=== PATIENT | female | born 1985 ===

== ENCOUNTER 2018-10-17 18:43 | Emergency (ER) | payer BC, SELFPAY ==
[2018-10-17 18:54] VITALS: BP 111/90; PULSE 70; RESP 18; TEMP 36.9; O2SAT 100; BMI 27.8
--- NOTE | 2018-10-17 19:11 | ED_ITS ---
HPI - Head Injury <MATEO GoreP - Last Filed: 10/17/18 22:02> General Chief complaint: Head Injury Stated complaint: Hit in head with a rock Time Seen by Provider: 10/17/18 18:48 Source: patient and family Mode of arrival: ambulatory Limitations: no limitations History of Present Illness HPI Narrative: This is a 33-year-old female, nonsmoker, who presents with spouse with head injury and laceration to left-sided forehead. She reports that gotten a hit by a small office size rock that was thrown by 6-year-old child accidentally. The child was throwing a rock above his head and landed on her forehead. Patient denies mid cervical tenderness, loss of consciousness, weakness to extremities, nausea or vomiting. The wound was covered with bulky pressure dressing and a clot prior coming in to ED. Patient denies on anticoagulant currently. The patient states she delivered her 3rd child 5 years ago and remembering getting a vaccination her arm which gave her pain for couple of days. The patient and spouse are visitor from [facility] to [place]. Related Data Allergies Allergy/AdvReac Type Severity Reaction Status Date / Time No Known Drug Allergies Allergy Verified 10/17/18 18:58 Review of Systems <MATEO GoreP - Last Filed: 10/17/18 22:02> Review of Systems General: Denies fever, chills, fatigue, malaise, sweats. HEENT: Forehead pain with laceration. Denies sinus pain, ear pain, sore throat, difficulty swallowing, dizziness. Respiratory: Denies dyspnea, cough, wheezing, hemoptysis, sputum. Cardiovascular: Denies chest pain, palpitations, orthopnea, edema. Gastrointestinal: Denies nausea, vomiting, abdominal pain, diarrhea, constipation, melena. : Denies dysuria, frequency, incontinence, hematuria, urinary retention. Musculoskeletal: Denies weakness, joint pain or bony pain. Skin: Denies rash, skin lesions, or other. Neurologic: Denies weakness, headache, numbness, change in speech, confusion, seizures, incoordination. Psychiatric: No concerning psychosocial issues. 12-point review of systems is negative except for those stated above. PFSH <MATEO GoreP - Last Filed: 10/17/18 22:02> Medical History (Updated 10/17/18 @ 21:52 by KAYLEE Gore) No significant past medical history (Acute) No significant past surgical history (Acute) Social History Smoking Status: Never smoker Social History Smoking Status: Never smoker Exam <KAYLEE Gore - Last Filed: 10/17/18 22:02> Narrative Exam Narrative: General appearance: well developed, well nourished, in no acute distress. Head: normocephalic, atraumatic, no scalp lesions, non-tender. Eye: pupil equal, round. EOMI. Nose: nares patent. Oral: mucosa moist. Neck/Thyroid: neck supple, full range of motion, no visible masses. No midcervical tenderness to palpate, no step-off. Skin: 2 cm linear laceration to left-sided forehead. No suspicious rashes, lesions over visible areas. Warm and dry. Heart: no clubbing, no cyanosis, no edema. S1-S2, regular rhythm and rate. Lungs: Breathing even and unlabored. No stridor. No accessory muscles used. Lung sounds bilaterally equal without wheezing, rhonchi. Chest: normal shape and expansion. Abdomen: non-obese, non-distended. Neurologic: : Alert and oriented to place, time and person. No facial droops, dysphasia. CN II-XII intact. Strength and sensation symmetric and intact throughout. Cerebellar testing normal. Psych: good eye contact, normal affect. Initial Vital Signs Initial Vital Signs: Vital Signs Temperature 98.4 F 10/17/18 18:54 Pulse Rate 70 10/17/18 18:54 Respiratory Rate 18 10/17/18 18:54 Blood Pressure 111/90 10/17/18 18:54 Pulse Oximetry 100 10/17/18 18:54 <Anthony Jin MD - Last Filed: 10/18/18 01:35> Initial Vital Signs Initial Vital Signs: Vital Signs Temperature 98.4 F 10/17/18 18:54 Pulse Rate 70 10/17/18 18:54 Respiratory Rate 18 10/17/18 18:54 Blood Pressure 111/90 10/17/18 18:54 Pulse Oximetry 100 10/17/18 18:54 Procedures <KAYLEE Gore - Last Filed: 10/17/18 22:02> Laceration Repair Laceration 1: Site: face (L side forehead) Size (cm): 2 Description: linear Pre-repair: wound explored and irrigated extensively (with hibiclens and 350ml of NS) Skin layer closed with: dermabond Scores <KAYLEE Gore - Last Filed: 10/17/18 22:02> GCS [place] coma scale eye opening: Spontaneous [place] coma scale verbal response: Orientated [place] coma scale motor response: Obey commands [place] coma scale total score: 15 Nexus Score for C-Spine Focal Neurologic deficit present: No Midline spinal tenderness present: No Altered level of conciousness present: No Intoxication present: No Distracting Injury Present: Yes Nexus Criteria for C-spine: 1 Course <KAYLEE Gore - Last Filed: 10/17/18 22:02> Orders Ordered: Discontinued Medications Acetaminophen (Tylenol) 975 mg PO NOW ONE Stop: 10/17/18 19:16 Last Admin: 10/17/18 19:42 Dose: 975 mg Vital Signs - 8 hr 10/17/18 18:54 10/17/18 20:08 Temperature 98.4 F Pulse Rate 70 71 Respiratory Rate 18 15 Blood Pressure 111/90 Blood Pressure [Left Arm] 105/67 Pulse Oximetry 100 100 <Anthony Jin MD - Last Filed: 10/18/18 01:35> Orders Ordered: Discontinued Medications Acetaminophen (Tylenol) 975 mg PO NOW ONE Stop: 10/17/18 19:16 Last Admin: 10/17/18 19:42 Dose: 975 mg Vital Signs - 8 hr 10/17/18 18:54 10/17/18 20:08 Temperature 98.4 F Pulse Rate 70 71 Respiratory Rate 18 15 Blood Pressure 111/90 Blood Pressure [Left Arm] 105/67 Pulse Oximetry 100 100 MDM - Head Injury <KAYLEE Gore - Last Filed: 10/17/18 22:02> Differential Diagnosis Differential diagnosis: Likely concussion without loss of consciousness, closed head injury and other (laceration) Medical Records Attestation: I reviewed the patient's medical records. [facility] Narrative Medical decision making narrative: This is a 33-year-old female who presents with spouse with closed head injury, 2 cm laceration to left side forehead after hit by a rock accidentally that was thrown to up in the air by 6-year-old boy. Patient had no loss of consciousness or neurological deficit was noted. Patient did not have mid cervical tenderness to palpate, step-off. We discussed pros and cons of having a CT scan and the physical finding not warrant for head CT at this time and patient and spouse agreed. Laceration on her forehead was repaired by Dermabond and Steri-Strip to reinforce. We discussed Dermabond care and return precautions for closed head injury and laceration and wound care with patient and spouse. The patient was advised to follow up with her primary care physician for tetanus update. The patient had remember exactly getting a vaccination during the with her 3rd child about 5 years ago. Questions were answered to apparent satisfaction. Discharge Plan Departure Patient Disposition: Home Clinical Impression: Laceration Closed head injury Qualifiers: Encounter type: initial encounter Qualified Code(s): S09.90XA - Unspecified injury of head, initial encounter Discharge Date/Time: 10/17/18 20:12 Interventions: ED Discharge Assessment Last Done: 10/17/18 20:12 Instructions: DI for Laceration Repair With Dermabond, DI for Closed Head Injury Activity Restrictions/Additional Instructions: You have been diagnosed with [closed head injury and laceration on forehead. You're tetanus should be updated about 5 years ago when he delivery you're last child please check with their primary care doctor]. Wound care: Please do not get your wound soaked in the water until dermabond comes off. Keep your dressing intact for next 24 hrs. After then, you could remove your dressing, wash with soap and water. Pat dry with clean papertowel and dress it. Please avoid using oil based ointment, cream, lotion and etc since this may make dermabond lose and removed prematurely. Dermabond will come off in 5-7 days on its own. Do not peel this off or pick on it. You can change dressing as needed and daily. Please monitor for signs and symptoms for infection such as increasing redness, swelling, warmth, pain, fever, purulent discharge. If this occurs, please return to ED or follow up with your primary care physician since your wound may be gotten infected. Please follow up with your primary care provider at [place] or in 2-3 days for recheck wound. *Take your medications as directed. You can take [id number] Tylenol and/or ibuprofen as needed for pain. Please use ice pack for next couple of days for swelling and pain. *Follow up with your primary care provider in 2-3 days, call for an appointment. Let them know you were seen in the ED and that we asked you to be seen in follow up. *Return to ED if you have any new, worsening, or concerning symptoms, such as [increasing pain, swelling, pain, pus-like discharge, fever, warm to touch on h er forehead. Also severe headache, repeated vomiting, vision change, unusual behavior, seizure-like activity, any acute concerns]. <Anthony Jin MD - Last Filed: 10/18/18 01:35> Cosign ED Attending Cosignature Attestation: I was present in the ER at the time this patient's care. I was available for consultation or to see the patient directly. I agree with the assessment and treatment plan.
[2018-10-17] MEDS: ACETAMINOPHEN 325 MG TABLET 975 MG PO (19:42)
[2018-10-17 20:08] VITALS: BP 105/67; PULSE 71; RESP 15; O2SAT 100
== END 2018-10-17 20:12 | disposition home or self-care (01) ==
PROVIDERS: Emergency Provider Nurse Practitioner Family
DX: S01.81XA Laceration without foreign body of other part of head, initial encounter (principal); W20.8XXA Other cause of strike by thrown, projected or falling object, initial encounter
CPT/HCPCS: 99282